=== PATIENT | male | born 1985 | race Caucasian/White ===

== ENCOUNTER 2017-05-19 13:43 | Emergency (ER) | payer BC ==
[~2017-05-19] VITALS: Ht 190.5 cm; Wt 109.5 kg
[2017-05-19 14:49] LABS: EOSINOPHIL (%) 0.1 % (0-5); HEMATOCRIT 44.8 % (38.0-50.0); IMMATURE GRANULOCYTE (%) 0.4 % (0.0-0.7); INSTRUMENT ABS NEUTROPHIL CT 5.1 K/uL; MCH 30.6 PG (29.0-34.0); MCV 87.3 FL (86-99); MEAN PLAT.VOLUME 9.5 uM^3 (9.0-12.4); MONOCYTE COUNT 0.5 K/uL (0-0.8); NEUTROPHIL (%) 76.2 % (45-76); NEUTROPHIL COUNT 5.1 K/uL (1.8-6.4); PLATELET COUNT 222 K/uL (156-360); RBC DIS.WIDTH-CV 11.8 % (11.8-14.6); RBC DIS.WIDTH-SD 37.6 % (39-53); RED BLOOD COUNT 5.13 M/uL (4.00-5.50); WHITE BLOOD COUNT 6.7 K/uL (4.1-10.2)
[2017-05-19 14:56] LABS: CHLORIDE 108 mEq/L (99-109)
[2017-05-19 14:57] LABS: SODIUM 141 mEq/L (136-147)
[2017-05-19 14:58] LABS: GLUCOSE 94 mg/dL (70-99)
[2017-05-19 15:00] LABS: ANION GAP 10 MEQ/L (2-14)
[2017-05-19 15:01] LABS: SERUM ETHYL ALCOHOL < 10 mg/dL
[2017-05-19 15:02] LABS: GFR ESTIMATE (CALCULATED) > 59 mL/min/
[2017-05-19 15:03] LABS: UREA NITROGEN (BUN) 13 mg/dL (9-23)
[2017-05-19] MEDS ORDERED: XANAX0.5 MG PO (15:40)
[2017-05-19 15:52] VITALS: BP 161/90
== END 2017-05-19 15:53 | disposition home or self-care (01) ==
LOC: EME 13:43
PROVIDERS: Emergency Medicine
DX: F41.0 Panic disorder [episodic paroxysmal anxiety] (principal); F43.10 Post-traumatic stress disorder, unspecified; F10.20 Alcohol dependence, uncomplicated; F17.200 Nicotine dependence, unspecified, uncomplicated
CPT/HCPCS: 80048; 81003; 85025; 90839; 99281; 99284; G0480